=== PATIENT | male | born 2000 | race Two or more races ===

== ENCOUNTER 2021-03-13 10:21 | Emergency (ER) | payer SELFPAY ==
[~2021-03-13] VITALS: Ht 167.6 cm; Wt 92.1 kg
[2021-03-13 10:22] VITALS: BP 129/87
[2021-03-13] MEDS ORDERED: ASPirin 81 mg TAB PO ONE (11:00)
[2021-03-13 11:35] LABS: Basophils # (auto) 0.1 10 ^3/uL (0-0.2); Eosinophils # (auto) 0.1 10 ^3/uL (0-0.8); Neutrophils # (auto) 5.7 10 ^3/uL (1.6-8.6); White Blood Cell 8.4 10^3/uL (4.4-10.8)
[2021-03-13 11:37] LABS: Basophils % (auto) 1.1 % (0.0-2.0); Eosinophils % (auto) 0.6 % (0.0-7.0); Hematocrit 51.2 % (41.0-53.0); Hemoglobin 18.3 g/dL (13.5-17.5); Lymphocytes % (auto) 23.4 % (10.0-50.0); Mean Corpuscular Hemoglobin 31.4 pg (28.0-32.0); Mean Corpuscular Hgb Conc. 35.8 g/dL (32.0-36.0); Mean Corpuscular Volume 87.7 fL (80.0-100.0); Monocytes # (auto) 0.6 10 ^3/uL (0-1.3); Monocytes % (auto) 7.2 % (0.0-12.0); Neutrophils % (auto) 67.7 % (37.0-80.0); Nucleated Red Blood Cells % 0.1 %; Platelet Count (auto) 294 10^3/uL (140-450); Red Blood Cells 5.84 10^6/uL (4.5-5.90); Red Cell Distribution Width 12.6 % (11.8-14.3)
[2021-03-13 12:02] LABS: Albumin 4.5 g/dL (3.4-5.0); Anion Gap 7 (5-15); Blood Urea Nitrogen 12 mg/dL (7-18); Carbon Dioxide 26 mmol/L (21-32); Chloride 105 mmol/L (98-107); Glucose 90 mg/dL (74-106); Potassium 4.2 mmol/L (3.5-5.1); Sodium 138 mmol/L (136-145)
[2021-03-13 12:07] LABS: Alanine Aminotransferase 31 U/L (16-61); Alkaline Phosphatase 85 U/L (45-117); Aspartate Aminotransferase 17 U/L (15-37); BUN/Creatinine Ratio 13.5; Bilirubin, Total 1.5 mg/dL (0.2-1.0); GFR African American 142 mL/min; GFR Non-African American 117 mL/min; Total Protein 8.2 g/dL (6.4-8.2)
[2021-03-13 12:23] LABS: Urine Bacteria NONE SEEN /hpf (None Seen); Urine Blood Negative /uL (Negative); Urine Mucus FEW (None Seen); Urine Specific Gravity 1.026 (1.001-1.035); Urine WBC 2 /hpf (0 - 3)
== END 2021-03-13 12:36 | disposition home or self-care (01) ==
LOC: ER 10:21
DX: R07.89 Other chest pain (principal)
CPT/HCPCS: 36415; 70450; 80053; 81001; 84484; 85025; 85049; 93005

== ENCOUNTER 2022-01-24 03:27 | Emergency (ER) | payer SELFPAY ==
[~2022-01-24] VITALS: Ht 177.8 cm; Wt 117.9 kg
[2022-01-24 03:27] VITALS: BP 151/97
[2022-01-24 04:35] LABS: Basophils # (auto) 0.1 10 ^3/uL (0-0.2); Eosinophils # (auto) 0.1 10 ^3/uL (0-0.8); Eosinophils % (auto) 1.1 % (0.0-7.0); Hematocrit 47.9 % (41.0-53.0); Hemoglobin 16.6 g/dL (13.5-17.5); Lymphocytes # (auto) 3.6 10 ^3/uL (0.4-5.4); Mean Corpuscular Hemoglobin 28.9 pg (28.0-32.0); Mean Corpuscular Hgb Conc. 34.7 g/dL (32.0-36.0); Mean Corpuscular Volume 83.3 fL (80.0-100.0); Monocytes # (auto) 0.7 10 ^3/uL (0-1.3); Monocytes % (auto) 6.6 % (0.0-12.0); Neutrophils # (auto) 5.6 10 ^3/uL (1.6-8.6); Neutrophils % (auto) 55.3 % (37.0-80.0); Nucleated Red Blood Cells % 0.1 %; Red Blood Cells 5.75 10^6/uL (4.5-5.90); Red Cell Distribution Width 12.4 % (11.8-14.3); White Blood Cell 10.1 10^3/uL (4.4-10.8)
[2022-01-24 04:39] LABS: Albumin 3.9 g/dL (3.4-5.0); Calcium 8.9 mg/dL (8.5-10.1); Magnesium 2.4 mg/dL (1.6-2.6); Potassium 4.6 mmol/L (3.5-5.1)
[2022-01-24 04:42] LABS: BUN/Creatinine Ratio 22.6; Bilirubin, Total 0.4 mg/dL (0.2-1.0); Total Protein 7.2 g/dL (6.4-8.2)
== END 2022-01-24 05:02 | disposition left against medical advice (07) ==
LOC: ER 03:27
DX: R07.89 Other chest pain (principal); F12.10 Cannabis abuse, uncomplicated; Z53.21 Procedure and treatment not carried out due to patient leaving prior to being seen by health care provider
CPT/HCPCS: 36415; 71045; 80053; 83735; 84443; 84484; 85025; 85379; 93005

== ENCOUNTER 2023-12-03 10:52 | Emergency (ER) | payer OTHER ==
[~2023-12-03] VITALS: Ht 175.3 cm; Wt 124.9 kg
[2023-12-03 12:27] LABS: Basophils # (auto) 0.1 10 ^3/uL (0-0.2); Basophils % (auto) 0.9 % (0.0-2.0); Eosinophils # (auto) 0.1 10 ^3/uL (0-0.8); Eosinophils % (auto) 0.8 % (0.0-7.0); Hematocrit 51.4 % (41.0-53.0); Hemoglobin 17.3 g/dL (13.5-17.5); Lymphocytes # (auto) 2.2 10 ^3/uL (0.4-5.4); Lymphocytes % (auto) 27.7 % (10.0-50.0); Mean Corpuscular Hemoglobin 28.8 pg (28.0-32.0); Mean Corpuscular Hgb Conc. 33.6 g/dL (32.0-36.0); Mean Corpuscular Volume 85.7 fL (80.0-100.0); Monocytes # (auto) 0.5 10 ^3/uL (0-1.3); Monocytes % (auto) 5.8 % (0.0-12.0); Neutrophils # (auto) 5.1 10 ^3/uL (1.6-8.6); Neutrophils % (auto) 64.8 % (37.0-80.0); Nucleated Red Blood Cells % 0.2 %; Red Blood Cells 6.01 10^6/uL (4.5-5.90); Red Cell Distribution Width 12.7 % (11.8-14.3); White Blood Cell 7.9 10^3/uL (4.4-10.8)
[2023-12-03 12:36] LABS: Chloride 106 mmol/L (98-107); Potassium 4.5 mmol/L (3.5-5.1); Sodium 139 mmol/L (136-145)
[2023-12-03 12:37] LABS: Anion Gap 4 (5-15); Carbon Dioxide 29 mmol/L (20-30)
[2023-12-03 12:38] LABS: Calcium 9.7 mg/dL (8.5-10.1)
[2023-12-03 12:42] LABS: Blood Urea Nitrogen 7 mg/dL (9-23); Glucose 97 mg/dL (74-106)
[2023-12-03] MEDS ORDERED: MECL25CH85 PO (14:00)
[2023-12-03 14:19] VITALS: BP 128/86; PULSE 77; RESP 18; TEMP 97.8; O2SAT 97
== END 2023-12-03 14:18 | disposition home or self-care (01) ==
LOC: ER 10:52
DX: R42 Dizziness and giddiness (principal); F15.90 Other stimulant use, unspecified, uncomplicated
CPT/HCPCS: 36415; 80048; 82962; 85025

== ENCOUNTER 2025-02-09 14:17 | Emergency (ER) | payer SELFPAY ==
[~2025-02-09] VITALS: Ht 177.8 cm; Wt 117.5 kg
[~2025-02-09 14:17] MED LIST: MECL25CH85 PO
--- NOTE | 2025-02-09 15:20 | ED.PDOC ---
Musculoskeletal HPI Comments 24 y.o male presents to the ED for a chief complaint of right ankle pain s/p trauma. Patient reports playing basketball, took a jump and when he landed, he twisted his right ankle and head a pop. Patient is able to bear minimal weight and move ankle. He denies any head injuries, LOC, wounds, or lacerations. Chief Complaint: Lower Extremity Time Seen by MD: 15:09 Primary Care Provider: NONE Reviewed Notes: Nurses Notes, Medications, Allergies Allergies: Coded Allergies: NO KNOWN ALLERGIES (Unverified , 03/13/21) Home Meds Active Scripts Meclizine HCl (Antivert) 25 Mg Chw, 25 MG PO BID for 10 Days, #20 TAB.CHEW Prov:RUTH URBAN MD 12/03/23 Information Source: Patient Mode of Arrival: Ambulatory Location: Right Extremity Location: Ankle Timing: Hours Severity: Moderate Able to Move Extremity: Yes Bear Weight: Limited Pain: Moderate Mechanism: None Circumstances: Sporting Onset of Symptoms: After Trauma Symptoms: Pain DVT Risk Factors: NONE Associated signs and symptoms: Ankle pain Past Medical History PAST MEDICAL HISTORY: Denies Surgical History: Denies all surgeries Family History Family History: Reviewed,noncontributory to illness Social History Smoker: Non-Smoker Alcohol: Denies ETOH Use Drugs: Marijuana Lives In: Home Constitutional: denies: chills, diaphoresis, fatigue, fever, malaise, sweats, weakness, others EENTM: denies: blurred vision, double vision, ear bleeding, ear discharge, ear drainage, ear pain, ear ringing, eye pain, eye redness, hearing loss, mouth pain, mouth swelling, nasal discharge, nose bleeding, nose congestion, nose pain, photophobia, tearing, throat pain, throat swelling, voice changes, others Respiratory: denies: cough, hemoptysis, orthopnea, SOB at rest, shortness of breath, SOB with excertion, stridor, wheezing, others Cardiovascular: denies: chest pain, dizzy spells, diaphoresis, Dyspnea on exertion, edema, irregular heart beat, left arm pain, lightheadedness, palpitations, PND, syncope, others Gastrointestinal: denies: abdomen distended, abdominal pain, blood streaked bowels, constipated, diarrhea, dysphagia, difficulty swallowing, hematemesis, melena, nausea, poor appetite, poor fluid intake, rectal bleeding, rectal pain, vomiting, others Genitourinary: denies: burning, dysuria, flank pain, frequency, hematuria, incontinence, penile discharge, penile sore, pain, testicle pain, testicle swell ing, urgency, others Neurological: denies: dizziness, fainting, headache, left sided numbness, left sided weakness, numbness, paresthesia, pre-existing deficit, right sided numbness, right sided weakness, seizure, speech problems, tingling, tremors, weakness, others Musculoskeletal: reports: others (right ankle pain ); denies: back pain, gout, joint pain, joint swelling, muscle pain, muscle stiffness, neck pain Integumetry: denies: bruises, change in color, change in hair/nails, dryness, laceration, lesions, lumps, rash, wounds, others Allergic/Immunocompromised: denies: Difficulty Healing, Frequent Infections, Hives, Itching, others Hematologic/Lymphatic: denies: anemia, blood clots, easy bleeding, easy bruising, swollen glands, others Endocrine: denies: excessive hunger, excessive sweating, excessive thirst, excessive urination, flushing, intolerance to cold, intolerance to heat, unexplained weight gain, unexplained weight loss, others Psychiatric: denies: anxiety, bipolar disorder, depression, hopeless, panic disorder, schizophrenia, sleepless, suicidal, others All Other Systems: Reviewed and Negative Physical Exam General Appearance: Mild Distress, Obese HEENT: Normal ENT Inspection, Pharynx Normal, TMs Normal Neck: Full Range of Motion, Non-Tender, Normal, Normal Inspection Respiratory: Chest Non-Tender, Lungs Clear, No Accessory Muscle Use, No Respiratory Distress, Normal Breath Sounds Cardiovascular: No Edema, No JVD, No Murmur, No Gallop, Normal Peripheral Pulses, Regular Rate/Rhythm Breast Exam: Deferred Gastrointestinal: No Organomegaly, Non Tender, No Pulsatile Mass, Normal Bowel Sounds, Soft Genitalia: Deferred Pelvic: Deferred Rectal: Deferred Extremities: No calf tenderness, Normal capillary refill, No pedal edema Musculoskeletal : Location: Right Extremity Location: Ankle Apperance: Swelling, Limited ROM, Tenderness: Moderate Neurologic: Alert, collision mechanic II-XII nml as Tested, No Motor Deficits, Normal Affect, Normal Mood, No Sensory Deficits Cerebellar Function: Normal Reflexes: Normal Skin: Dry, Normal Color, Warm Lymphatic: No Adenopathy Was a procedure done? Was a procedure done?: No Differential Diagnosis EXT Differential Diagnosis: Fracture, Sprain, Dislocation, Contusion, Strain X-Ray, Labs, Meds, VS Vital Signs Date Time Temp Pulse Resp B/P (MAP) Pulse Ox O2 Delivery O2 Flow Rate FiO2 02/09/25 14:28 97.4 116 18 121/10 (47) 95 97.4 X-ray of the right ankle shows: IMPRESSION: 1. No acute fracture dislocation 2. Small loose body seen in the medial malleolus joint space 3. Right lateral malleolar soft tissue swelling and mildly on the right medial malleolus At this time, the patient is being discharged The patient was placed in an ankle stirrup. The patient was placed on crutches and gait training The patient was given a Gaston here in the emergency department's Images Reviewed?: Images reviewed and evaluated by me Time of 1ST Reevaluation: 15:17 Reevaluation 1ST: Unchanged Patient Education/Counseling: Diagnosis, Treatment, Prognosis, Need For Follow Up Family Education/Counseling: No Family Present Departure 1 Departure Time of Disposition: 15:58 Impression: Primary Impression: Right ankle strain Qualified Codes: S96.911A - Strain of unspecified muscle and tendon at ankle and foot level, right foot, initial encounter Disposition: HOME / SELF CARE / HOMELESS Condition: Fair Discharged With: Self Critical Care Note Critical Care Time?: No Stability Stability form required: No I personally scribed for RUTH URBAN MD ([email or web address]) on 02/09/25 at 15:20. Electronically submitted by June Temple ([facility]). RUTH URBAN MD February 09, 2025 15:20
--- NOTE | 2025-02-09 15:49 | DVH ---
INDICATION: trauma TECHNIQUE: 4 radiographic views of the right ankle were obtained. COMPARISON: None FINDINGS: The ankle mortise appears intact. There is no evidence of acute fracture or dislocation.The visualized joint space is well maintained. Small loose body seen in the medial The alignment is lina omical.The surrounding soft tissues are unremarkable.There is no evidence of bony lesions or erosions .The pre-talar, juxta-articular and pre-achilles fat pad appear unremarkable Bimalleolar soft tissue swelling most pronounced of the right lateral malleolus. IMPRESSION: 1. No acute fracture dislocation 2. Small loose body seen in the medial malleolus joint space 3. Right lateral malleolar soft tissue swelling and mildly on the right medial malleolus
[2025-02-09] MEDS: HYDROcodone-ACET 10/325MG TAB PO ONE (16:00)
[2025-02-09 16:30] VITALS: BP 125/81; PULSE 96; RESP 16; TEMP 97.7; O2SAT 100
== END 2025-02-09 17:54 | disposition home or self-care (01) ==
LOC: ER 14:23
DX: S96.911A Strain of unspecified muscle and tendon at ankle and foot level, right foot, initial encounter (principal); F12.90 Cannabis use, unspecified, uncomplicated; X50.1XXA Overexertion from prolonged static or awkward postures, initial encounter; Y93.67 Activity, basketball; Y92.89 Other specified places as the place of occurrence of the external cause; Y99.8 Other external cause status
CPT/HCPCS: 29515; 73610